=== PATIENT | female | born 1960 | race Caucasian/White ===

== ENCOUNTER 2021-08-03 13:21 | Emergency (ER) | payer OTHER, SELFPAY ==
[2021-08-03 13:28] VITALS: BP 137/92; PULSE 82; RESP 18; TEMP 37; O2SAT 100; BMI 35.4
[2021-08-03 15:14] LABS: MANUAL DIFF FLAG NO
[2021-08-03 15:32] LABS: Basophils Percent Auto 0.3 % (0-2); Eosinophils Absolute Auto 0.1 X10*3/uL (0.0-0.4); Eosinophils Percent Auto 1.2 % (0-4); Hematocrit 42.2 % (37.0-47.0); Hemoglobin 14.1 g/dl (12.0-16.0); Imm Gran Abs Auto 0.02 X10*3/uL (0.00-0.03); Imm Gran Pct Auto 0.2 % (0.0-0.4); Lymphocytes Absolute Auto 2.2 X10*3/uL (1.2-4.9); Lymphocytes Percent Auto 23.2 % (20-40); Mean Corpuscular HGB Conc 33.4 g/dl (31.0-35.0); Mean Corpuscular Hemoglobin 30.9 pg (27.0-33.0); Mean Corpuscular Volume 92.5 fL (80.0-98.0); Mean Platelet Volume 12.6 fL (9.4-12.3); Monocytes Absolute Auto 0.5 X10*3/uL (0.1-1.2); Monocytes Percent Auto 5.6 % (2-11); Neutrophils Absolute Auto 6.4 x10*3/uL (2.0-8.3); Neutrophils Percent Auto 69.5 % (45-73); Platelet Count 261 X10*3/uL (160-400); Red Blood Count 4.56 X10*6/uL (4.20-5.50); Red Cell Distribution Width 12.6 % (11.0-16.0); White Blood Count 9.3 X10*3/uL (4.8-10.8)
[2021-08-03 15:36] LABS: COVID-19 Test Negative (Negative); IDNOW Serial# 55D5AD1C; IDNOW Serial# 9DB6401D; Influenza A Negative (Negative); Influenza B2 Negative (Negative)
[2021-08-03 15:37] LABS: Alanine Aminotransferase 42 U/L (0-31); Albumin Level 4.4 g/dL (3.5-5.0); Alkaline Phosphatase 107 U/L (39-117); Anion Gap 11 (12-20); Aspartate Amino Transferase 27 U/L (5-31); Bilirubin Direct 0.2 mg/dL (0.0-0.5); Bilirubin Total 0.5 mg/dL (0.0-1.0); Blood Urea Nitrogen 11 mg/dL (9-16); Calcium 9.9 mg/dL (8.4-10.2); Carbon Dioxide 24 mmol/L (22-29); Chloride 110 mmol/L (96-108); Creatinine Clr Calc Pharmacy 84.2; Estimated Glomerular Filt Rate > 60; Glucose Random 117 mg/dL (60-115); Potassium 3.8 mmol/L (3.3-5.1); Sodium 141 mmol/L (135-145); Total Protein 7.2 g/dL (6.5-8.0)
--- NOTE | 2021-08-03 15:52 | ED_ITS ---
HPI - Nausea/Vomiting/Diarrhea General Chief complaint: Nausea/Vomiting/Diarrhea Stated complaint: dehydrated, stomach pain chest Time Seen by Provider: 08/03/21 15:52 Source: patient Mode of arrival: ambulatory Limitations: no limitations History of Present Illness HPI Narrative: 61-year-old female presents for concern for dehydration. Patient was hospitalized at [facility] from July 09 through , she was diag nosed with an esophageal stricture and Cha's esophagus. Since discharge, her primary care provider has given her several medications which she reports have given her diarrhea Patient was on submitted Juan, but states that gave her diarrhea so her primary care discontinued it. Patient was given pantoprazole, but had a hard time swallowing it, so she was given liquid, but her pharmacy would not fill it. Patient was given so crowd fate, which he started July 27, states she had diarrhea from that medication again. Patient is due for another esophageal dilatation September 01 at [facility]. Patient states she has been reading on the Internet, and is concerned that something worse is wrong with her. She states that she has had diarrhea for several days, and has a decreased urine output despite drinking a lot of water. States that she called a nurse today had her primary care who told her to go to emergency room because she may be dehydrated. In addition, patient has recently started Ativan for anxiety, prescribed by her psychiatrist Patient endorses pain under her left arm, and left-sided chest pain that she has had for months. Patient says she has been quite anxious since she had the admission at [facility] She is able to eat food, but it must be soft or she can eat soup. States she did eat burned toast today because she read that that would help her symptoms on the Internet States she feels that her mouth is very dry Patient denies weight loss, fevers, vomiting, shortness of breath, leg swelling, dizziness, lightheadedness Related Data Previous Rx's Medication Instructions Recorded cephalexin 500 mg capsule 500 mg PO QID 5 Days #20 cap 08/03/21 Allergies Allergy/AdvReac Type Severity Reaction Status Date / Time acetaminophen [From Percocet] Allergy Hives Verified 08/03/21 13:33 oxycodone [From Percocet] Allergy Hives Verified 08/03/21 13:33 Review of Systems Constitutional: Constitutional: Denies body ache(s), Denies chills, Denies fatigue, Denies fever(s), Denies headache(s), Denies malaise and Denies weakness Eyes: Eyes: Denies diplopia ENT: Denies vertigo, Denies dizziness, Reports dry mouth, Denies otalgia, Denies headache(s), Denies mouth pain, Reports odynophagia, Denies post nasal drip, Denies sinus pain, Denies sinus pressure, Denies sore throat and Denies throat swelling Cardiovascular: Cardiovascular: Reports chest pain, Denies syncope, Denies leg edema, Denies lightheadedness, Denies Loss of Consciousness, Denies palpitations and Denies dyspnea Respiratory: Respiratory: Denies chest congestion, Denies cough and Denies dyspnea Gastrointestinal: Gastrointestinal: Denies abdominal pain, Denies melena, Denies hematochezia, Denies coffee ground emesis, Denies constipation, Reports diarrhea, Reports odynophagia and Denies vomiting Genitourinary: Genitourinary: Denies dysuria, Denies pelvic pain, Denies flank pain, Denies urinary incontinence, Denies urinary hesitancy and Denies urinary urgency Musculoskeletal: Musculoskeletal: Reports myalgias Neurologic: Denies confusion, Denies vertigo, Denies dizziness, Denies syncope, Denies headache(s) and Denies weakness Psychiatric: Psychiatric: Denies anxiety, Denies confusion and Denies depression Endocrine: Endocrine: Denies fatigue and Denies palpitations Allergic/Immunologic: Allergic/Immunologic: Denies throat swelling [facility] Past Medical History [facility] Narrative: GERD Cha's esophagus Esophageal stricture with dilatation at [facility] June 2021 Anxiety Social History Social History Advance Directives: No Advance Directives Information Provided: No Physical Exam Vital Signs: Vital Signs: Last Vital Signs Temp 96.7 F L 08/03/21 16:45 Pulse 71 08/03/21 16:45 Resp 16 08/03/21 16:45 BP 134/69 08/03/21 16:45 Pulse Ox 97 08/03/21 16:45 BMI result Body Mass Index 35.4 Const: General: No confusion Nutritional Appearance: well nourished Orientation/consciousness: No confusion Limitations: no limitations HEENT: Head: Yes normal to inspection, Yes normocephalic and Yes atraumatic Ears: hearing grossly normal bilaterally, external ears normal, TM's normal bilaterally and EAC's normal General nose exam: Normal external nose present Face and sinus: Yes normal facial exam and Yes sinuses nontender Mouth: Normal oral and palatal mucosa present Throat: Yes posterior oropharynx normal Eyes: Conjunctivae: conjunctivae normal Pupils: Equal, round and reactive pupils present EOM: EOMs intact bilaterally Neck: Neck: Yes full ROM, Yes no lymphadenopathy and Yes supple Resp: Effort & Inspection: normal respiratory effort and able to speak in complete sentences Auscultation: clear to auscultation bilaterally, no crackles, no rales, no rhonchi and no wheezes Cardio: Rate: regular rate Rhythm: regular rhythm Heart sounds: S1 normal heart sound present and S2 normal heart sound present GI: Inspection: Yes normal to inspection Palpation (GI): Soft to palpation, nontender, no guarding and not rigid Percussion: Yes normal to percussion Auscultation: normal bowel sounds Skin: General skin exam: no rashes or lesions noted Neuro: General: No confusion Cranial nerves: Yes Equal, round and reactive pupils present Extrem: General: Yes normal to inspection and Yes full ROM Psych: Appearance: grossly normal Affect: normal affect Attitude: cooperative Thought process: Normal thought process present Course Course Course Narrative: 61-year-old female presents with concerns for dehydration, anxiety, non reproducible chest pain that she has had for months. Patient has had a recent diagnosis of esophageal stricture and is on soft and liquid foods. Patient is swelled by [facility] for this. Patient has had some days of diarrhea which she attributes to medication changes She is concerned for dehydration On exam, patient has stable vitals, she is not tachycardic, heart rate is 82, she is normotensive. BUN is 11, creatinine is 0.74. COVID negative influenza negative Patient has mildly dry mucous membranes, otherwise physical exam is benign Patient is anxious I reassured patient that so far all her labs were normal, and that we would get urine to rule out any dehydration or urinary tract infection, that we will get an EKG, and troponin to rule out a cardiac nature for this chest pain Reevaluation(s) Reevaluation #1: EKG shows normal sinus, no ischemia, troponin is negative Urine shows small amount of leukocyte esterase, no increased specific gravity Provided reassurance to patient, counseled patient to call her primary care provider for stool culture to do as outpatient. Prescribed Keflex, patient verbalized agreement understanding MDM - Nausea/Vomiting/Diarrhea Lab Data Result diagrams: 08/03/21 15:06 08/03/21 15:06 Labs: Lab Results 08/03/21 08/03/21 08/03/21 Range/Units 15:06 15:06 15:06 WBC 9.3 (4.8-10.8) X10*3/uL RBC 4.56 (4.20-5.50) X10*6/uL Hgb 14.1 (12.0-16.0) g/dl Hct 42.2 (37.0-47.0) % MCV 92.5 (80.0-98.0) fL MCH 30.9 (27.0-33.0) pg MCHC 33.4 (31.0-35.0) g/dl RDW 12.6 (11.0-16.0) % Plt Count 261 (160-400) X10*3/uL MPV 12.6 H (9.4-12.3) fL Immature Gran % (Auto) 0.2 (0.0-0.4) % Neut % (Auto) 69.5 (45-73) % Lymph % (Auto) 23.2 (20-40) % [place] % (Auto) 5.6 (2-11) % Eos % (Auto) 1.2 (0-4) % Baso % (Auto) 0.3 (0-2) % Lymph # (Auto) 2.2 (1.2-4.9) X10*3/uL [place] # (Auto) 0.5 (0.1-1.2) X10*3/uL Eos # (Auto) 0.1 (0.0-0.4) X10*3/uL Baso # (Auto) 0.0 (0.0-0.2) X10*3/uL Abs Immat Gran (auto) 0.02 (0.00-0.03) X10*3/uL Absolute Neuts (auto) 6.4 (2.0-8.3) x10*3/uL Absolute Nucleated RBC 0.000 (0.0-0.012) X10*3/uL Nucleated RBC % (auto) 0.0 (0.0-0.2) /100WBC Sodium 141 (135-145) mmol/L Potassium 3.8 (3.3-5.1) mmol/L Chloride 110 H (96-108) mmol/L Carbon Dioxide 24 (22-29) mmol/L Anion Gap 11 L (12-20) BUN 11 (9-16) mg/dL Creatinine 0.74 (0.5-1.4) mg/dL Estim Creat Clear Calc 84.2 Estimated GFR > 60 Random Glucose 117 H (60-115) mg/dL Calcium 9.9 (8.4-10.2) mg/dL Total Bilirubin 0.5 (0.0-1.0) mg/dL Direct Bilirubin 0.2 (0.0-0.5) mg/dL AST 27 (5-31) U/L ALT 42 H (0-31) U/L Alkaline Phosphatase 107 (39-117) U/L Troponin I High Sens 4.7 (<3.5-17.0) ng/L Total Protein 7.2 (6.5-8.0) g/dL Albumin 4.4 (3.5-5.0) g/dL Urine Color Urine Appearance Urine pH (5.0-8.0) Ur Specific [place] (1.005-1.025) Urine Protein (NEG-TRACE) MG/DL Urine Glucose (UA) (NEG) MG/DL Urine Ketones (NEG) MG/DL Urine Blood (NEG) Urine Nitrite (NEG) Ur Leukocyte Esterase (NEG) Urine RBC (0) /HPF Urine WBC (0-4) /HPF Ur Squamous Epith Cells /LPF Calcium Oxalate Crystal /LPF Urine Bacteria /LPF COVID-19 (ERICKA) (Negative) COVID-19 Clin Com Influenza Type A (CAMILLA) (Negative) Influenza Type B (CAMILLA) (Negative) Influenza A & B Note 08/03/21 08/03/21 08/03/21 Range/Units 15:07 15:07 16:43 WBC (4.8-10.8) X10*3/uL RBC (4.20-5.50) X10*6/uL Hgb (12.0-16.0) g/dl Hct (37.0-47.0) % MCV (80.0-98.0) fL MCH (27.0-33.0) pg MCHC (31.0-35.0) g/dl RDW (11.0-16.0) % Plt Count (160-400) X10*3/uL MPV (9.4-12.3) fL Immature Gran % (Auto) (0.0-0.4) % Neut % (Auto) (45-73) % Lymph % (Auto) (20-40) % [place] % (Auto) (2-11) % Eos % (Auto) (0-4) % Baso % (Auto) (0-2) % Lymph # (Auto) (1.2-4.9) X10*3/uL [place] # (Auto) (0.1-1.2) X10*3/uL Eos # (Auto) (0.0-0.4) X10*3/uL Baso # (Auto) (0.0-0.2) X10*3/uL Abs Immat Gran (auto) (0.00-0.03) X10*3/uL Absolute Neuts (auto) (2.0-8.3) x10*3/uL Absolute Nucleated RBC (0.0-0.012) X10*3/uL Nucleated RBC % (auto) (0.0-0.2) /100WBC Sodium (135-145) mmol/L Potassium (3.3-5.1) mmol/L Chloride (96-108) mmol/L Carbon Dioxide (22-29) mmol/L Anion Gap (12-20) BUN (9-16) mg/dL Creatinine (0.5-1.4) mg/dL Estim Creat Clear Calc Estimated GFR Random Glucose (60-115) mg/dL Calcium (8.4-10.2) mg/dL Total Bilirubin (0.0-1.0) mg/dL Direct Bilirubin (0.0-0.5) mg/dL AST (5-31) U/L ALT (0-31) U/L Alkaline Phosphatase (39-117) U/L Troponin I High Sens (<3.5-17.0) ng/L Total Protein (6.5-8.0) g/dL Albumin (3.5-5.0) g/dL Urine Color YELLOW Urine Appearance CLEAR Urine pH 5.5 (5.0-8.0) Ur Specific [place] 1.025 (1.005-1.025) Urine Protein NEG (NEG-TRACE) MG/DL Urine Glucose (UA) NEG (NEG) MG/DL Urine Ketones 5 (NEG) MG/DL Urine Blood TRACE (NEG) Urine Nitrite NEG (NEG) Ur Leukocyte Esterase TRACE H (NEG) Urine RBC 0 (0) /HPF Urine WBC 0-2 (0-4) /HPF Ur Squamous Epith Cells NONE /LPF Calcium Oxalate Crystal 1+ /LPF Urine Bacteria TRACE /LPF COVID-19 (ERICKA) Negative (Negative) COVID-19 Clin Com See Note Influenza Type A (CAMILLA) Negative (Negative) Influenza Type B (CAMILLA) Negative (Negative) Influenza A & B Note See Note ECG Data Interpretation: Sinus at a rate of 72, NM interval 152, QRS 94, QTC is not prolonged at 04:38, normal axis, no ST depressions or elevations, no T-wave abnormalities Discharge Plan Discharge Clinical Impression: UTI (urinary tract infection), Diarrhea, Anxiety Patient Disposition: Home, Self-Care Additional Instructions: Your EKG was normal, your labs are normal, your urine showed a very small amount of infection. Will treat this with antibiotics. You need to have stool studies, a stool culture done to rule out infection in your stool. Please call your primary care provider seeking get this done tomorrow. Please return to emergency room for any new or concerning symptoms Prescriptions: New cephalexin 500 mg capsule 500 mg PO QID 5 Days Qty: 20 0RF Interventions: ED Discharge Assessment Last Done: 08/03/21 18:07 Discharge Date/Time: 08/03/21 18:08
--- NOTE | 2021-08-03 16:18 | ECG_ITS ---
Test Reason : CP Blood Pressure : / mmHG Vent. Rate : 072 BPM Atrial Rate : 072 BPM P-R Int : 152 ms QRS Dur : 094 ms QT Int : 400 ms P-R-T Axes : 053 027 053 degrees QTc Int : 438 ms Normal sinus rhythm Normal ECG No previous ECGs available Referred By: Bethany Fan Electronically Signed By:KATE HERNANDEZ
[2021-08-03 16:45] VITALS: BP 134/69; PULSE 71; RESP 16; TEMP 35.9; O2SAT 97
[2021-08-03 16:52] LABS: Appearance Urine CLEAR; Color Urine YELLOW; Glucose Urine UA NEG (NEG); Leukocyte Esterase Urine TRACE (NEG); Nitrite Urine NEG (NEG); PH 5.5 (5.0-8.0); Specific Gravity - Urine 1.025 (1.005-1.025); UACC Culture Trigger NO; Urine Blood TRACE (NEG); Urine Ketones 5 MG/DL (NEG); Urine Protein NEG (NEG-TRACE)
[2021-08-03 16:57] LABS: Troponin-I High Sensitivity 4.7 ng/L (<3.5-17.0)
[2021-08-03 17:36] LABS: Bacteria Urine TRACE /LPF; Calcium Oxalate Crystals Urine 1+ /LPF; RBC Urine 0 /HPF (0); WBC Urine 0-2 /HPF (0-4)
== END 2021-08-03 18:08 | disposition home or self-care (01) ==
PROVIDERS: Physician Assistant; Emergency Provider Emergency Medicine; PCP Orthopaedic Surgery
DX: N39.0 Urinary tract infection, site not specified (principal); R19.7 Diarrhea, unspecified; F41.9 Anxiety disorder, unspecified; R11.2 Nausea with vomiting, unspecified; Z20.822 Contact with and (suspected) exposure to COVID-19
CPT/HCPCS: 80053; 81001; 81003; 82248; 84484; 85025; 87502; 87635; 93005; 99283